=== PATIENT | female | born 1930 | race Caucasian/White ===

== ENCOUNTER → 2016-10-25 | Day surgery (SDC) | payer MEDICARE ==
[~2016-10-25] MED LIST: ALLERGY RELIEF10 M1 PO; AMLODIPINE BESYL5 MG PO; ATENOLOL PO; CIPRO PO; CLARITIN10 M2 PO; DILANTIN KAPSE100 MG PO; ECOTRIN325 MG PO; EYE HEALTH ADU1 EACH PO; HALCION0.25 M1 PO; HYDROCODON-ACE1 EAC5 PO; HYDROXYZINE HCL10 MG PO; IMDUR-ER60 M1 PO; LO-DOSE ASPIRIN81 M1 PO; LORTAB 10-3251 EACH PO; LORTAB 10-5001 EACH PO; MEDI-MECLIZINE25 M1 PO; NEURONTIN100 MG PO; NITROLINGUAL12 G1 PO; NITROSTAT0.4 MG SL; OMEPRAZOLE40 M1 PO; PENTOXIFYLLINE PO; PHENERGAN12.5 MG PO; TRENTAL PO; TRENTAL400 MG PO; TYLENOL #3 PO; VENLAFAXINE H37.5 M2 PO; VITAMIN D35000 UNIT PO; ZETIA; ZETIA PO; ZOCOR PO
--- NOTE | ~2016-10-25 | OR ---
Unit #: [id number] #: [id number] Patient: KOLBY OGLESBY [id number] [address] [place], [place] [address] [id number] MR#: [id number] NAME: KOLBY OGLESBY ROOM: Date of Procedure: 10/25/2016 Admission Date: 10/25/2016 Surgeon: Huy Ricks M.D. : 1930 Attending Physician: Huy Ricks M.D. Primary Care Physician: Deepti Washington M.D. OPERATIVE REPORT JOB NOTE: CC: [facility] PREOPERATIVE DIAGNOSES Back pain, radiculopathy, post-laminectomy, degenerative disk disease, spondylolisthesis. POSTOPERATIVE DIAGNOSES Back pain, radiculopathy, post-laminectomy, degenerative disk disease, spondylolisthesis. PROCEDURE PERFORMED Lumbar epidural steroid injection with intravenous sedation and fluoroscopic guidance for needle localization. INDICATIONS FOR PROCEDURE The patient is an 86-year-old female with return of back and right greater than left lower extremity pain due to multilevel multifactorial degenerative disk and spine disease, post-laminectomy syndrome, and spondylolisthesis at the L4-5 level. She last treated in 2016 with epidural steroids and did well for several months, she had resurgence of the pain, so plan is to repeat injection today. She had a series done over the last several weeks, which resulted in additive significant improvement in her symptoms. Based on good response, we are going to proceed with a final injection at this point. She will likely require injections in the future based on her pathology, symptomatology, and treatment options. DESCRIPTION OF PROCEDURE The patient was placed in a seated position. Standard monitors were applied. 1 mg of Versed was given for sedation and anxiolysis, which were adequate. Vital signs remained stable. Sterile prep and drape then of the lumbar area was performed. The skin then at the L3 level was localized with 1% lidocaine. An 18-gauge Moxtra needle was then advanced via loss of resistance technique and fluoroscopic guidance in toward the epidural space. After confirming proper positioning with fluoroscopy and radiographic contrast, 80 mg of Depo-Medrol and 4 mL of 0.125% bupivacaine were deposited. The patient tolerated the procedure otherwise well and was discharged to the recovery room in stable condition. Dictated by... Huy Ricks M.D. Unit #: [id number] #: [id number] Patient: KOLBY OGLESBY LHP/modl TD: 10/25/2016 22:24 JOB #: [id number] OPERATIVE REPORT X Huy Ricks MD X PROCEDURE OPERATIVE NOTE
== END | disposition home or self-care (01) ==
LOC: CCSC 08:13
PROVIDERS: Pain Medicine Pain Medicine
PROC: 3E0R3CZ (ICD-10-PCS; 2016-10-25)
PROC: 3E0R33Z Introduction of Anti-inflammatory into Spinal Canal, Percutaneous Approach (ICD-10-PCS; principal; 2016-10-25 09:15)
DX: M51.16 Intervertebral disc disorders with radiculopathy, lumbar region (principal); M43.16 Spondylolisthesis, lumbar region; M96.1 Postlaminectomy syndrome, not elsewhere classified; I11.0 Hypertensive heart disease with heart failure; I50.9 Heart failure, unspecified; R56.9 Unspecified convulsions
CPT/HCPCS: J1040; J2250